=== PATIENT | male | born 2005 | race African-American/Black ===

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

== ENCOUNTER 2024-05-15 23:21 | Emergency (ER) | payer MEDICAID ==
[~2024-05-15] VITALS: Ht 177.8 cm; Wt 92.1 kg
[2024-05-15 23:32] VITALS: BP 131/96; PULSE 110; RESP 16; TEMP 98.1; O2SAT 98
[2024-05-16] MEDS: DICYCLOMINE HCL 10MG/ML 2ML VIAL IM STA (00:29)
[2024-05-16] MEDS: FAMOTIDINE 20MG TABLET PO ONE (00:29)
[2024-05-16] MEDS: ONDANSETRON 4MG ODT PO ONE (00:29)
[2024-05-16] MEDS: MAGNESIUM/ALUMINUM HYDROXIDE/SIMETHICONE 30ML UDC PO ONE (00:29)
[2024-05-16 00:30] LABS: BASOPHILS % 0.7 % (0.0-2.0); EOSINOPHILS % 2.1 % (0.0-5.0); HEMATOCRIT. 49.4 % (42.0-52.0); HEMOGLOBIN. 17.3 g/dL (14.0-18.0); LYMPHOCYTES % 24.4 % (20.0-50.0); MEAN CORPUSCULAR HGB CONC 35.1 g/dL (31.0-37.0); MEAN CORPUSCULAR VOLUME 88.2 fL (80.0-94.0); MEAN PLATELET VOLUME 8.7 fl (7.4-10.4); MONOCYTES % 7.8 % (2.0-8.0); PLATELET 290 x1000/uL (130-400); RED CELL DISTRIBUTION WIDTH 12.1 % (11.6-14.6); WHITE BLOOD COUNT 11.4 x1000/uL (4.5-11.0)
[2024-05-16 00:37] LABS: CARBON DIOXIDE 29 mEq/L (21-32); CHLORIDE 101 mEq/L (98-107); POTASSIUM 4.1 mEq/L (3.5-5.1); SODIUM 137 mEq/L (136-145)
[2024-05-16 00:38] LABS: CALCIUM 10.6 mg/dL (8.7-10.4)
[2024-05-16 00:42] LABS: CREATININE 1.3 mg/dL (0.6-1.3); GLUCOSE 91 mg/dL (70-105)
[2024-05-16 00:43] LABS: UREA NITROGEN BLOOD 9 mg/dL (9-23)
[2024-05-16 00:44] LABS: ALANINE AMINOTRANSFERASE 30 IU/L (10-49)
[2024-05-16 00:45] LABS: ALBUMIN 5.2 g/dL (3.2-4.8); ASPARTATE AMINOTRANSFERASE 31 IU/L (<34); BILIRUBIN TOTAL 1.1 mg/dL (0.1-1.0); PROTEIN TOTAL 8.8 g/dL (6.0-8.3)
[2024-05-16 00:49] LABS: TROPONIN I HIGH SENSITIVITY 8 ng/L (3.0-53)
[2024-05-16 01:02] LABS: ETHANOL BLOOD < 10 mg/dL (<10)
[2024-05-16] MEDS ORDERED: FAMO-135 MT (01:11)
[2024-05-16] MEDS ORDERED: MAG-55 MT (01:11)
== END 2024-05-16 01:51 | disposition home or self-care (01) ==
LOC: ER 23:21
DX: R10.13 Epigastric pain (principal); J45.909 Unspecified asthma, uncomplicated
CPT/HCPCS: 71045; 93005; 99285; 80053; 80320; 83690; 85025; 84484; 36415; 96372; Q0162; J0500; G0480

== ENCOUNTER 2024-05-19 02:36 | Emergency (ER) | payer MEDICAID ==
[~2024-05-19] VITALS: Ht 172.7 cm; Wt 87.0 kg
[~2024-05-19 02:36] MED LIST: FAMO-135 MT; MAG-55 MT
[2024-05-19 02:51] VITALS: O2SAT 98
[2024-05-19] MEDS: MAGNESIUM/ALUMINUM HYDROXIDE/SIMETHICONE 30ML UDC PO STA (03:13)
[2024-05-19] MEDS: SODIUM CHLORIDE 0.9% 1,000 ML IV ONE (03:15)
[2024-05-19 03:40] LABS: BASOPHILS % 0.4 % (0.0-2.0); EOSINOPHILS % 1.1 % (0.0-5.0); HEMATOCRIT. 47.6 % (42.0-52.0); HEMOGLOBIN. 16.5 g/dL (14.0-18.0); LYMPHOCYTES % 15.1 % (20.0-50.0); MEAN CORPUSCULAR HEMOGLOBIN 30.8 pg (28.0-32.0); MEAN CORPUSCULAR HGB CONC 34.7 g/dL (31.0-37.0); MEAN CORPUSCULAR VOLUME 88.7 fL (80.0-94.0); MEAN PLATELET VOLUME 8.4 fl (7.4-10.4); MONOCYTES % 6.5 % (2.0-8.0); NEUTROPHILS % 76.9 % (40.0-76.0); PLATELET 319 x1000/uL (130-400); RED BLOOD CELL COUNT 5.37 mill/uL (4.7-6.1); WHITE BLOOD COUNT 11.9 x1000/uL (4.5-11.0)
[2024-05-19 03:44] LABS: CHLORIDE 99 mEq/L (98-107); POTASSIUM 3.5 mEq/L (3.5-5.1); SODIUM 136 mEq/L (136-145)
[2024-05-19 03:45] LABS: CALCIUM 10.3 mg/dL (8.7-10.4); CARBON DIOXIDE 29 mEq/L (21-32)
[2024-05-19 03:50] LABS: CREATININE 1.2 mg/dL (0.6-1.3); GLUCOSE 122 mg/dL (70-105); UREA NITROGEN BLOOD 9 mg/dL (9-23)
[2024-05-19 03:53] LABS: LACTIC ACID 3.3 mmol/L (0.4-2.0)
[2024-05-19 04:16] LABS: ETHANOL BLOOD < 10 mg/dL (<10)
[2024-05-19] MEDS ORDERED: CEFTRIAXONE 1GM/50ML 50 ML IV NR (05:00)
[2024-05-19] MEDS: SODIUM CHLORIDE 0.9% 1000ML BAG (SEPSIS BOLUS) IV NR (05:00)
[2024-05-19 05:24] LABS: ALANINE AMINOTRANSFERASE 35 IU/L (10-49); ALBUMIN 5.3 g/dL (3.2-4.8); ASPARTATE AMINOTRANSFERASE 41 IU/L (<34); BILIRUBIN DIRECT 0.5 mg/dL (<=3.0); BILIRUBIN TOTAL 1.2 mg/dL (0.1-1.0); PROTEIN TOTAL 8.8 g/dL (6.0-8.3)
[2024-05-19] MEDS ORDERED: DEXT 5%/LACTATED RINGERS 1,000 ML IV SCH (06:30)
[2024-05-19] MEDS ORDERED: CLONIDINE 0.1MG TABLET PO PRN (06:30)
[2024-05-19] MEDS ORDERED: IPRATROPIUM/ALBUTEROL 0.5-3(2.5)MG/3ML NEB NEB PRN (06:30)
[2024-05-19] MEDS ORDERED: ONDANSETRON HCL 4MG/2ML INJ IV PRN (06:30)
[2024-05-19] MEDS ORDERED: DOCUSATE SODIUM 100MG CAPSULE PO PRN (06:30)
[2024-05-19] MEDS ORDERED: ZOLPIDEM TARTRATE 5MG TABLET PO PRN (06:30)
[2024-05-19] MEDS ORDERED: KETOROLAC 15MG/ML VIAL IV PRN (06:30)
[2024-05-19] MEDS ORDERED: GUAIFENESIN 200MG/10ML SUGAR FREE UDC PO PRN (06:30)
[2024-05-19] MEDS ORDERED: MAGNESIUM/ALUMINUM HYDROXIDE/SIMETHICONE 30ML UDC PO PRN (06:30)
[2024-05-19] MEDS ORDERED: NITROGLYCERIN 0.4MG TABLET SL SL PRN (06:30)
[2024-05-19] MEDS ORDERED: ACETAMINOPHEN 325MG TABLET PO PRN ×2 (06:30)
[2024-05-19] MEDS: PIPERACILLIN/TAZO 3.375G/50ML 50 ML IV NR (07:19)
[2024-05-19 07:21] LABS: VITAMIN B12 SERUM 451 pg/mL (211-911)
[2024-05-19 07:22] LABS: T4 FREE 2.09 ng/dL (0.89-1.76); THYROID STIMULATING HORMONE 2.67 uIU/mL (0.55-4.78)
[2024-05-19 07:35] VITALS: TEMP 37.83636; O2SAT 100
[2024-05-19 08:08] VITALS: BP 110/47; PULSE 116; RESP 18
[2024-05-19] MEDS: KETOROLAC 30MG/ML VIAL IV STA (08:08)
[2024-05-19] MEDS: ONDANSETRON HCL 4MG/2ML INJ IV STA (08:09)
[2024-05-19] MEDS ORDERED: PANTOPRAZOLE SODIUM 40 MG/VIAL IV SCH (09:00)
[2024-05-19] MEDS ORDERED: PIPERACILLIN/TAZO 3.375G/50ML 50 ML IV SCH (14:00)
== END 2024-05-19 08:04 | disposition short-term general hospital (02) ==
LOC: ER 02:36 → EDBEDREQTM 07:49 → EDBEDREQ 07:49 → ER 08:04
DX: K81.9 Cholecystitis, unspecified (principal); J45.909 Unspecified asthma, uncomplicated
CPT/HCPCS: 80076; 80048; 80320; 82607; 84439; 83605; 83690; 84443; 85025; 36415; 71045; 76705; 96361; 96365; 96375; 99291; J1885; J2405; J2543; J7030; Z7610; G0480